=== PATIENT | male | born 1960 | race Caucasian/White ===

== ENCOUNTER 2025-02-21 08:52 | Day surgery (SDC) | payer OTHER, SELFPAY ==
--- NOTE | 2025-02-15 08:55 | HPS.HSE ---
Family Physician
-
Family Physician: Joy Pham
Chief Complaint
-
Persistent atrial fibrillation.
History of Present Illness
The patient is a 64 year old male presenting today for persistent atrial fibrillation. The patient reports symptoms such as occasional chest tightness, intermittent shortness of breath, and rare palpitations likely secondary to this
diagnosis. He previously underwent a cardioversion in October 2017 for his arrhythmia. Unfortunately, he had an early recurrence of his atrial fibrillation soon after this procedure. He is currently on pharmacological therapy with Carvedilol. He
reports compliance with Eliquis for oral anticoagulation due to a CHADS-VASc of 3. He is interested in pursuing pulmonary vein isolation for more definitive arrhythmia management. Prior to undergoing an ablation, he will proceed first with a
transesophageal echocardiogram to definitively rule out a left atrial appendage thrombus. He denies any current complaints today such as chest pain, shortness of breath at rest, nausea, vomiting, diarrhea, lightheadedness, dizziness, cough, sore
throat, or fever.
Medical History
Past Medical History
Past Medical History: Reports Other
Additional Past Medical History:
1. Persistent atrial fibrillation, status post cardioversion 2017; pharmacological therapy with Carvedilol and oral anticoagulation with Eliquis.
2. Hypertension.
3. Coronary artery disease, nonobstructive on cardiac cath 09/2024.
4. Right bundle branch block.
5. Chronic systolic heart failure, reduced ejection fraction.
6. Nonischemic cardiomyopathy.
7. Mild-moderate mitral regurgitation.
8. Mild tricuspid regurgitation.
9. Venous varicosities.
10. GERD.
11. Chronic diarrhea.
12. Abdominal nodule of right upper quadrant, work-up ongoing.
13. Peripheral neuropathy.
14. Balance difficulties.
15. Osteoarthritis.
16. Bilateral lower extremity muscle spasms.
17. Skin cancer, status post excision.
18. Current tobacco abuse.
19. Daily alcohol.
Past Surgical History: Reports Other
Additional Past Surgical History:
1. Cardioversion.
2. Left inguinal hernia repair.
3. Right inguinal hernia repair.
4. Colonoscopy x2.
Social History
Tobacco: Smoker (He is a current 1/2 pack per day cigarette smoker who has been smoking for 35+ years. He is attempting to quit with a Nicoderm patch.)
Alcohol: Daily (2-3 drinks reported per day. He mostly drinks beer and liquor.)
Personal:
Living: Other (He lives with his in a 2 story home.)
Family History
Family History: Not pertinent
Allergies / Home Medications
Allergy/Medication List:
Home medications:
1. Eliquis 5 mg p.o. twice a day.
2. Ascorbic acid 500 mg p.o. daily.
3. Carvedilol 50 mg p.o. twice a day.
4. Cholecalciferol 25 mcg p.o. daily.
5. Digoxin 125 mcg p.o. daily.
6. Jardiance 10 mg p.o. daily.
7. Eplerenone 50 mg p.o. twice a day.
8. Multivitamin 1 tablet p.o. daily.
9. Omeprazole 20 mg p.o. daily.
10. Potassium chloride 40 meq p.o. daily.
11. Entresto 24-26 mg p.o. twice a day.
12. Torsemide 20 mg p.o. daily.
13. Zinc acetate 30 mg p.o. daily.
Allergies: No known allergies.
Review of Systems
-
A 12 point ROS was completed and negative except as noted: Yes
Physical Exam
Vital Signs
Blood pressure 149/89. Heart rate 53. Respirations 18. Pulse ox 99% on room air.
Height 5 feet, 9 inches. Weight 83.3 kg. BMI 27.1.
Physical Exam
General: Well Developed, Well Nourished and No Apparent Distress
HEENT: NormoCephalic, Moist mucous membranes, Atraumatic and PERRLA
Respiratory: Clear
Cardiac: Irregular Rhythm
GI: Soft, Non Tender and Non Distended
Musculoskeletal: No Edema and Normal Gait & Station
Skin: Warm and Dry
Neuro: AO x 3 and Nonfocal/grossly intact
Laboratory Results
-
DIAGNOSTIC STUDIES as of 02/10/2025: White blood cell count 7.8. Hemoglobin 18.3. Platelet count 136,000. PT 15.4. INR 1.19. Sodium 143. Potassium 3.9. BUN 13. Creatinine 1.0. Glucose 107. Calcium 9.3. Magnesium 2.3. AST 27. ALT 20. Albumin 4.6.
Type and screen O positive.
EKG 02/10/2025: Atrial fibrillation. Left axis deviation. Incomplete right bundle branch block. Anteroseptal infarct, age undetermined.
Chest CT 02/10/2025: Short segment common vestibule for the left superior and inferior pulmonary veins, fairly commonly seen and considered normal variant. Partial nonopacification of the left atrial appendage likely related to incomplete contrast
filling; however, cannot rule out thrombus. The left atrium is otherwise well opacified.
Indeterminant enhancing nodule in the right upper quadrant possibly arising from the right adrenal gland or right hepatic lobe. Recommend further evaluation with dedicated MRI abdomen without and with gadolinium contrast.
Echocardiogram 07/20/2024: Normal left ventricular size, increased wall thickness, and moderate reduction in systolic function. Global regional wall motion abnormalities are seen possibly consistent with nonischemic cardiomyopathy. The ejection
fraction is estimated at 25-30%. Diastolic dysfunction unable to be completely evaluated due to arrhythmia. Normal right ventricular size and function. Moderate to severely enlarged left atrium. At least moderately enlarged right atrium.
Structurally normal mitral valve without significant stenosis with mild to moderate central regurgitation. Structurally normal aortic valve without significant stenosis or regurgitation. Structurally normal tricuspid valve without significant
stenosis with mild regurgitation. Estimated pulmonary artery pressure is 18 mmHg. Structurally normal pulmonic valve without significant stenosis or regurgitation. Normal pericardium without effusion. Normal aortic root. IVC not well-seen.
Impression/Plan
-
IMPRESSION/PLAN:
1. Persistent atrial fibrillation: The patient is in need of pulmonary vein isolation; however, prior to his ablation, he will undergo a transesophageal echocardiogram to definitively rule out a left atrial appendage thrombus. This has been
scheduled for 02/21/[address] Yasmani Paul. The benefits and risks of the procedure have been explained to the patient. The patient understands these risks and wishes to proceed. Strict compliance with Eliquis is advised for 30 days prior and
3 months post-ablation. He will hold his Jardiance starting 02/19/2025.
2. Nonischemic cardiomyopathy: The patient was advised previously to undergo an ICD implant by his primary co teacher, Dr. Dagoberto Lind, given his reduced ejection fraction despite being compliant with guideline-directed medical therapy. The
patient has chosen to proceed with pulmonary vein isolation first in the hopes of restoring sinus rhythm. Post-procedure, it is recommended he undergo a reassessment of his left ventricular ejection fraction prior to possible implantation.
3. Abdominal nodule of right upper quadrant, work-up ongoing: The patient's nodule is likely a right adrenal nodule vs right hepatic lobe nodule. An abdominal MRI was recommended by radiology for further evaluation. The patient was notified by phone
call pre-operatively regarding this. His primary care physician, Dr. Joy Pham, was also forwarded his chest CT. It was agreed upon, through phone call, that his primary care physician would order his MRI and follow-up with his results. His MRI
does not necessarily need to be done prior to his ablation.
4. Current tobacco abuse and daily alcohol: The patient is aware that his continued tobacco use and excessive alcohol consumption are likely exacerbating his arrhythmia. He is taking active measures to improve his quality of life. He was given
encouragement and applauded for his efforts pre-operatively.
[2025-02-21 09:30] VITALS: BMI 27.1
== END 2025-02-21 10:04 | disposition home or self-care (01) ==
LOC: CATH 08:52
PROVIDERS: ATTENDING PHYSICIAN Internal Medicine Cardiovascular Disease; FAMILY PHYSICIAN Family Medicine; OTHER PHYSICIAN Internal Medicine Cardiovascular Disease
DX: I48.19 Other persistent atrial fibrillation (principal); I08.1 Rheumatic disorders of both mitral and tricuspid valves; I70.0 Atherosclerosis of aorta; I11.0 Hypertensive heart disease with heart failure; I25.10 Atherosclerotic heart disease of native coronary artery without angina pectoris; I42.8 Other cardiomyopathies; I50.22 Chronic systolic (congestive) heart failure; F17.210 Nicotine dependence, cigarettes, uncomplicated; M19.90 Unspecified osteoarthritis, unspecified site; Z79.01 Long term (current) use of anticoagulants; Z79.899 Other long term (current) drug therapy; G62.9 Polyneuropathy, unspecified; M62.838 Other muscle spasm; K21.9 Gastro-esophageal reflux disease without esophagitis; Z79.84 Long term (current) use of oral hypoglycemic drugs
CPT/HCPCS: 93312; 93320; 93325

== ENCOUNTER 2025-02-22 05:54 | Day surgery (SDC) | payer OTHER, SELFPAY ==
[2025-02-10 09:02] VITALS: BMI 27.1
[2025-02-10 09:42] LABS: ALT (SGPT) 20 U/L (0-50); AST (SGOT) 27 U/L (17-59); Albumin 4.6 g/dl (3.5-5.0); Alkaline Phosphatase 92 U/L (38-126); Blood Urea Nitrogen 13 mg/dl (9-20); Calcium 9.3 mg/dl (8.4-10.2); Carbon Dioxide 30 mmol/L (22-30); Estimated Creatinine Clearance 73 ml/min; Glucose 107 mg/dl (70-99); INR 1.19; Magnesium 2.3 mg/dl (1.6-2.3); PT 15.4 Sec (11.4-14.6); Total Bilirubin 1.1 mg/dl (0.2-1.3); Total Protein 7.3 g/dl (6.3-8.2); eGFR > 60.00
[2025-02-10 09:49] LABS: % Basophils 1.2 % (0-2); % Eosinophils 2.4 % (0-6); % Immature Granulocytes 0.3 % (0-0.5); % Lymphocytes 20.4 % (20.5-51.1); % Monocytes 6.6 % (1.7-9.3); % Neutrophils 69.1 % (42.2-75.2); Absolute Basophils 0.1 10^3/uL (0-0.2); Absolute Eosinophils 0.2 10^3/uL (0-0.7); Absolute Lymphocytes 1.6 10^3/uL (1.2-3.4); Absolute Monocytes 0.5 10^3/uL (0.1-0.6); Absolute Neutrophils 5.4 10^3/uL (1.4-6.5); Hematocrit 52.2 % (39.0-52.0); Hemoglobin 18.3 g/dL (13.0-18.0); Mean Corp Hgb Conc. 35.1 g/dL (33.0-37.0); Mean Corpuscular Hgb 34.9 pg (27.0-31.0); Mean Corpuscular Volume 99.4 fL (80.0-94.0); Mean Platelet Volume 11.7 fL (7.4-10.4); Nucleated Red Blood Cells % 0 % (-); Platelet Count 136 10^3/uL (130-400); Red Blood Cell Count 5.25 10^6/uL (4.70-6.10); Red Cell Dist. Width 13.7 % (11.5-14.5); White Blood Cell Count 7.8 10^3/uL (4.8-10.8)
--- NOTE | 2025-02-10 09:53 | HPS.HSE ---
Family Physician
-
Family Physician: Joy Pham
Chief Complaint
-
Persistent atrial fibrillation.
History of Present Illness
The patient is a 64 year old male presenting today for persistent atrial fibrillation. The patient reports symptoms such as occasional chest tightness, intermittent shortness of breath, and rare palpitations likely secondary to this
diagnosis. He previously underwent a cardioversion in October 2017 for his arrhythmia. Unfortunately, he had an early recurrence of his atrial fibrillation soon after this procedure. He is currently on pharmacological therapy with Carvedilol. He
reports compliance with Eliquis for oral anticoagulation due to a CHADS-VASc of 3. He is interested in pursuing pulmonary vein isolation for more definitive arrhythmia management. He denies any current complaints today such as chest pain, shortness
of breath at rest, nausea, vomiting, diarrhea, lightheadedness, dizziness, cough, sore throat, or fever.
Medical History
Past Medical History
Past Medical History: Reports Other
Additional Past Medical History:
1. Persistent atrial fibrillation, status post cardioversion 2017; pharmacological therapy with Carvedilol and oral anticoagulation with Eliquis.
2. Hypertension.
3. Coronary artery disease, nonobstructive on cardiac cath 09/2024.
4. Right bundle branch block.
5. Chronic systolic heart failure, reduced ejection fraction.
6. Nonischemic cardiomyopathy.
7. Mild-moderate mitral regurgitation.
8. Mild tricuspid regurgitation.
9. Venous varicosities.
10. GERD.
11. Chronic diarrhea.
12. Abdominal nodule of right upper quadrant, work-up ongoing.
13. Peripheral neuropathy.
14. Balance difficulties.
15. Osteoarthritis.
16. Bilateral lower extremity muscle spasms.
17. Skin cancer, status post excision.
18. Current tobacco abuse.
19. Daily alcohol.
Past Surgical History: Reports Other
Additional Past Surgical History:
1. Cardioversion.
2. Left inguinal hernia repair.
3. Right inguinal hernia repair.
4. Colonoscopy x2.
Social History
Tobacco: Smoker (He is a current 1/2 pack per day cigarette smoker who has been smoking for 35+ years. He is attempting to quit with a Nicoderm patch. )
Alcohol: Daily (2-3 drinks reported per day. He mostly drinks beer and liquor. )
Personal:
Living: Other (He lives with his in a 2 story home. )
Family History
Family History: Not pertinent
Allergies / Home Medications
Allergy/Medication List:
Home medications:
1. Eliquis 5 mg p.o. twice a day.
2. Ascorbic acid 500 mg p.o. daily.
3. Carvedilol 50 mg p.o. twice a day.
4. Cholecalciferol 25 mcg p.o. daily.
5. Digoxin 125 mcg p.o. daily.
6. Jardiance 10 mg p.o. daily.
7. Eplerenone 50 mg p.o. twice a day.
8. Multivitamin 1 tablet p.o. daily.
9. Omeprazole 20 mg p.o. daily.
10. Potassium chloride 40 meq p.o. daily.
11. Entresto 24-26 mg p.o. twice a day.
12. Torsemide 20 mg p.o. daily.
13. Zinc acetate 30 mg p.o. daily.
Allergies: No known allergies.
Review of Systems
-
A 12 point ROS was completed and negative except as noted: Yes
Physical Exam
Vital Signs
Blood pressure 149/89. Heart rate 53. Respirations 18. Pulse ox 99% on room air.
Height 5 feet, 9 inches. Weight 83.3 kg. BMI 27.1.
Physical Exam
General: Well Developed, Well Nourished and No Apparent Distress
HEENT: NormoCephalic, Moist mucous membranes, Atraumatic and PERRLA
Respiratory: Clear
Cardiac: Irregular Rhythm
GI: Soft, Non Tender and Non Distended
Musculoskeletal: No Edema and Normal Gait & Station
Skin: Warm and Dry
Neuro: AO x 3 and Nonfocal/grossly intact
Laboratory Results
-
DIAGNOSTIC STUDIES as of 02/10/2025: White blood cell count 7.8. Hemoglobin 18.3. Platelet count 136,000. PT 15.4. INR 1.19. Sodium 143. Potassium 3.9. BUN 13. Creatinine 1.0. Glucose 107. Calcium 9.3. Magnesium 2.3. AST 27. ALT 20. Albumin 4.6.
Type and screen O positive.
EKG 02/10/2025: Atrial fibrillation. Left axis deviation. Incomplete right bundle branch block. Anteroseptal infarct, age undetermined.
Chest CT 02/10/2025: Short segment common vestibule for the left superior and inferior pulmonary veins, fairly commonly seen and considered normal variant. Partial nonopacification of the left atrial appendage likely related to incomplete contrast
filling; however, cannot rule out thrombus. The left atrium is otherwise well opacified.
Indeterminant enhancing nodule in the right upper quadrant possibly arising from the right adrenal gland or right hepatic lobe. Recommend further evaluation with dedicated MRI abdomen without and with gadolinium contrast.
Echocardiogram 07/20/2024: Normal left ventricular size, increased wall thickness, and moderate reduction in systolic function. Global regional wall motion abnormalities are seen possibly consistent with nonischemic cardiomyopathy. The ejection
fraction is estimated at 25-30%. Diastolic dysfunction unable to be completely evaluated due to arrhythmia. Normal right ventricular size and function. Moderate to severely enlarged left atrium. At least moderately enlarged right atrium.
Structurally normal mitral valve without significant stenosis with mild to moderate central regurgitation. Structurally normal aortic valve without significant stenosis or regurgitation. Structurally normal tricuspid valve without significant
stenosis with mild regurgitation. Estimated pulmonary artery pressure is 18 mmHg. Structurally normal pulmonic valve without significant stenosis or regurgitation. Normal pericardium without effusion. Normal aortic root. IVC not well-seen.
Impression/Plan
-
IMPRESSION/PLAN:
1. Persistent atrial fibrillation: The patient is in need of pulmonary vein isolation with Dr. Alfonso Chandra on 02/22/2025. The benefits and risks of the procedure have been explained to the patient. The patient understands these risks and wishes to
proceed. He will be required to first undergo a pre-procedural transesophageal echocardiogram given his pre-ablation chest CT could not definitively rule out a left atrial appendage thrombus. This has been scheduled for 02/21/2025. Strict compliance
with Eliquis is advised for 30 days prior and 3 months post-ablation. He will hold his Jardiance starting 02/19/2025. He will take no medications the morning of his ablation.
2. Nonischemic cardiomyopathy: The patient was advised previously to undergo an ICD implant by his primary senior accountant cpa, Dr. Dagoberto Lind, given his reduced ejection fraction despite being compliant with guideline-directed medical therapy. The
patient has chosen to proceed with pulmonary vein isolation first in the hopes of restoring sinus rhythm. Post-procedure, it is recommended he undergo a reassessment of his left ventricular ejection fraction prior to possible implantation.
3. Abdominal nodule of right upper quadrant, work-up ongoing: The patient's nodule is likely a right adrenal nodule vs right hepatic lobe nodule. An abdominal MRI was recommended by radiology for further evaluation. The patient was notified by phone
call pre-operatively regarding this. His primary care physician, Dr. Joy Pham, was also forwarded his chest CT. It was agreed upon, through phone call, that his primary care physician would order his MRI and follow-up with his results. His MRI
does not necessarily need to be done prior to his ablation.
4. Current tobacco abuse and daily alcohol: The patient is aware that his continued tobacco use and excessive alcohol consumption are likely exacerbating his arrhythmia. He is taking active measures to improve his quality of life. He was given
encouragement and applauded for his efforts pre-operatively.
[2025-02-10 10:12] LABS: Chloride 102 mmol/L (98-107); Potassium 3.9 mmol/L (3.5-5.1); Sodium 143 mmol/L (135-145)
[2025-02-22] VITALS (34 sets, daily range): BP systolic 114–169; BP diastolic 64–100; BMI 27.4
--- NOTE | 2025-02-22 07:58 | ITS.CL.ABL ---
Program Control Analyst - Ablation
Ablation
Procedure Report:
Primary Vascular Surgery Physician: Dr Gurjit Dasilva, Dr Dagoberto Lind
Procedure Date: 02/22/2025
Patient History:
Patient is pleasant 64-year-old male with a past medical history significant for nonischemic cardiomyopathy, persistent atrial fibrillation, valvular heart disease, hypertension, alcohol use disorder..
See H&P for complete details.
Indication:
Symptomatic persistent atrial fibrillation
Nonischemic cardiomyopathy
Early recurrence of AF following cardioversion
Arrhythmia Specific History:
Prior Medical Therapies for Rate and Rhythm Control:
X Beta-jonathan
[ ] Calcium channel-jonathan
[ ] Amiodarone
[ ] Dronederone
[ ] Sotalol
[ ] Flecainide
[ ] Dofetilide
[ ] Options limited by bradycardia
[ ] Options limited by comorbid renal disease
Prior Procedural Therapies for AF/AFL:
X Cardioversion
[ ] Pulmonary Vein Isolation
[ ] Posterior Wall Isolation
[ ] Additional lines (Specify)
[ ] Surgical Sanchez-MAZE or PVI (Specify)
Procedure Performed:
X AF ablation procedure (49632) -- includes LA/CS pacing, trans-septal, 3D mapping, + ICE
[ ] +IV drug (58724)
[ ] +Other Arrhythmia (72399)
X +Other AF Line/ablation (22399) -- PFA floor/roof lines, PFA posterior wall
Risks and expected recovery has been explained in detail. Alternative options have been explored, and in a shared-decision making fashion we have decided that this was the most appropriate procedure.
Method
NPO status confirmed. Grounding pad applied. Defibrillator pads applied. Continuous surface ECG, pulse oximetry, and blood pressure were monitored. Procedure was performed under general anesthesia, with anesthesia services.
Both groins were clipped, prepped with Chloraprep, and draped in sterile fashion. Time out was called. Local anesthesia administered with bupivacaine. The right femoral vein was accessed for catheter placement, using ultrasound guidance (images
saved to record), micro-puncture needle/wire, and modified seldinger technique. 3 sheaths were placed. The following catheters were used:
[ ] Tacticath SE (D/F Curve) ablation catheter
X Viewflex 9Fr ICE catheter
X Inquiry decapolar 6Fr diagnostic catheter
[ ] CRD Hex 6Fr
[ ] Arctic Front Advance Cryoballoon ([ ]28mm[ ]23mm)
[ ] Achieve Advance mapping catheter ([ ]15mm[ ]20mm)
X FlexCath Contour 10 Fr with PulseSelect PFA Catheter
X Advisor HD Grid Mapping Catheter, SE
[ ] AcusIlink Systems AcuNav 8 Fr ICE catheter
[ ]Other: [ ]
Intracardiac ultrasound (ICE) was carefully advanced into the right atrium to guide sheath placement over a J-wire, catheter placement, guide trans-septal puncture, identify potential complications, identify anatomic structures and ensure proper
contact between ablation catheter and tissue. A trace pericardial effusion was noted at the base of the LV at the initiation of case. This remained unchanged during the procedure and at case completion.
Heparin was given prior to trans-septal puncture. Heparin was given to achieve and maintain a target ACT of 300-400 seconds throughout the procedure.
Trans-septal access was performed under ICE guidance. The trans-septal puncture was performed with a SafeSept wire through a Brockenbrough needle assembly through the steerable sheath. The wire was visualized as it entered the LSPV and system
advanced under ICE guidance and fluoroscopy into the LA. The Brockenbrough needle assembly, SafeSept wire and sheath dilator were removed under negative pressure. LA pressure was measured and recorded.
ICE and 3D mapping was performed to identify relevant cardiac structures. A careful 3D map was created to assess for regions of low-voltage and abnormal electrogram signals using HD grid mapping catheter and PulseSelect catheter. Additional mapping
was performed as outlined below.
Prior to ablation, glycopyrrolate was provided. PulseSelect catheter was advanced over J-wire to the ostium of each vein. Pulmonary vein isolation was performed with ostial and antral lesions in a circumferential manner. Contact was visualized via
EAM, ICE, fluoroscopy, and EGM signals. Posterior wall isolation was performed by anchoring the J-wire within the pulmonary vein and placing the PulseSelect catheter in contact with the posterior wall as visualized by aforementioned methods.
Following completion of ablation lesions, sinus rhythm was restored with a 200J synchronized DCCV and a post-ablation voltage/activation map was performed in atrial pacing. Entrance and exit block were confirmed for each vein and the posterior wall.
Catheter and sheath were removed from the left atrium and post-ablation intracardiac echo evaluation was consistent with pre-ablation with no changes and no pericardial effusion and there is no left atrial thrombus or left ventricle thrombus seen.
Electrophysiology study was performed. Hemostasis was obtained with figure of 8 stitch for each groin and with manual pressure. Protamine was used for reversal.
Estimated Blood Loss
5 mL
Complications
None
Fluoroscopy: 1.7 minutes; 5.25 mGy; DAP 0.687
LA Pressure: Pre 11 mmHg, post 4 mmHg
Baseline Intervals:
Rhythm: AF
QRS: 102 ms
QT: 320 ms
QTc: 366 ms
Post-Procedure Intervals:
ID: 187 ms
QRS: 107 ms
QT: 392 ms
QTc: 415 ms
A-A: 892 ms
R-R: 892 ms
AVWB: 440 ms
AVERP: 600/490 ms
Recommendations
- Bedrest with straight-leg precautions as ordered
- Anticipate same day discharge if patient meeting clinical metrics
- Resume home medications as indicated
- Ok to resume anticoagulation tonight if patient and groin sites stable
- PPI daily for 30 days
- Plan for follow-up in office as scheduled
Alfonso Chandra DO, FACC, RS
Clinical Cardiac Prescription Benefit Specialist
cc: Dr Gurjit Dasilva, Dr Dagoberto Lind, Dr Joy Pham
[2025-02-22 08:31] LABS: ACT-LR - POC 284 Seconds (116-155)
[2025-02-22 08:46] LABS: ACT-LR - POC 316 Seconds (116-155)
[2025-02-22 09:12] LABS: ACT-LR - POC 322 Seconds (116-155)
[2025-02-22 09:37] LABS: ACT-LR - POC 351 Seconds (116-155)
[2025-02-22 09:54] LABS: ACT-LR - POC 139 Seconds (116-155)
--- NOTE | 2025-02-22 14:34 | W.PN.UPDATE ---
Update Note
Progress Note Update
Pt seen post PFA. Right groin site without ht/bleeding until he got oob, bleeding noted in bathroom. Returned to bed with manual compression on site, hemostasis achieved. Now oob and stable, no bleeding or ht. Urinating without difficulty. Post EKG
NSR 60s, no acute changes. Resume eliquis tonight at usual time. Will decrease carvedilol to 25mg BID. Followup with Dr. Lind as scheduled.
== END 2025-02-22 16:00 | disposition home or self-care (01) ==
LOC: CATH 05:54
PROVIDERS: ATTENDING PHYSICIAN Internal Medicine Cardiovascular Disease; FAMILY PHYSICIAN Family Medicine; OTHER PHYSICIAN Internal Medicine Cardiovascular Disease
DX: I48.19 Other persistent atrial fibrillation (principal); I11.0 Hypertensive heart disease with heart failure; I50.22 Chronic systolic (congestive) heart failure; I25.10 Atherosclerotic heart disease of native coronary artery without angina pectoris; I42.8 Other cardiomyopathies; I08.1 Rheumatic disorders of both mitral and tricuspid valves; I83.90 Asymptomatic varicose veins of unspecified lower extremity; K21.9 Gastro-esophageal reflux disease without esophagitis; K52.9 Noninfective gastroenteritis and colitis, unspecified; G62.9 Polyneuropathy, unspecified; M19.90 Unspecified osteoarthritis, unspecified site; M62.838 Other muscle spasm; Z85.828 Personal history of other malignant neoplasm of skin; F17.210 Nicotine dependence, cigarettes, uncomplicated; Z79.01 Long term (current) use of anticoagulants; Z79.899 Other long term (current) drug therapy; Z79.84 Long term (current) use of oral hypoglycemic drugs
CPT/HCPCS: C1732; C1894; C1730; C1769; C1733; C1766; 36415; 75572; 80053; 83735; 85025; 85347; 85610; 86850; 86900; 86901; 93005; 93656; 93657; Q9967